=== PATIENT | female | born 1935 | race Caucasian/White ===

== ENCOUNTER 2021-01-18 09:04 | Day surgery (SDC) | payer OTHER, MEDICARE ==
[2021-01-18] MEDS ORDERED: Zoledronic Acid/Mannitol/Water 5 MG/100 ML INFUS.BOT IV ONE (09:15)
[2021-01-18 10:21] VITALS: BMI 27.4
[2021-01-18 10:23] VITALS: BP 143/69; TEMP 97.7; O2SAT 99
== END 2021-01-18 10:15 | disposition home health service (06) ==
LOC: DS 09:04
PROVIDERS: ATTEND Internal Medicine
DX: M81.0 Age-related osteoporosis without current pathological fracture (principal); R13.10 Dysphagia, unspecified; E86.0 Dehydration
CPT/HCPCS: 96365; J3489

== ENCOUNTER 2022-04-04 09:45 | Day surgery (SDC) | payer OTHER, MEDICARE ==
[2022-04-04] MEDS ORDERED: Zoledronic Acid/Mannitol/Water 5 MG/100 ML INFUS.BOT IV ONE (11:00)
[2022-04-04 12:38] VITALS: BP 136/59; TEMP 98.1; O2SAT 99; BMI 27.6
== END 2022-04-04 11:30 | disposition home or self-care (01) ==
LOC: DS 09:45
PROVIDERS: ATTEND Internal Medicine
DX: M81.0 Age-related osteoporosis without current pathological fracture (principal); R13.10 Dysphagia, unspecified
CPT/HCPCS: 96365; J3489